=== PATIENT | female | born 2000 | race Caucasian/White ===

== ENCOUNTER → 2019-04-15 16:06 | Outpatient (CLI) | payer OTHER, SELFPAY ==
[2019-04-15 14:17] VITALS: BMI 32.9
[2019-04-15 21:55] LABS: Chlamydia Trachomatis by PCR Negative (Negative); Neisserai gonorrhoeae by PCR Negative (Negative); Probe Check PASS; Sample Adequacy Control PASS; Specimen Processing Control PASS
== END ==
PROVIDERS: Family Provider Family Medicine; Referring Provider Nurse Practitioner Women's Health; Visit Provider Nurse Practitioner Women's Health
DX: A64 Unspecified sexually transmitted disease (principal)
CPT/HCPCS: 87491; 87591